=== PATIENT | female | born 1990 | race American Indian/Alaskan Native ===

== ENCOUNTER 2017-03-17 13:38 | Inpatient (IN) | payer MEDICAID ==
[2017-03-17] MEDS ORDERED: TYLENOL PO ONE (14:22)
[2017-03-17 15:11] LABS: Bilirubin,Urine NEG (Negative); Blood,Urine NEG (Negative); Color,Urine Yellow (Yellow); Mucus,Urine FEW /HPF; Nitrite,Urine NEG (Negative); Protein,Urine <15 mg/dL mg/dL (Negative); Urobilinogen,Urine < 2.0 mg/dL (<2.0)
[2017-03-17 17:41] LABS: Hematocrit 33.7 % (30.3-42.9); Hemoglobin 11.1 gm/dl (10.1-14.3); Mean Corpuscular HGB Conc 33 % (30-34); Mean Corpuscular Hemoglobin 28 pg (28-32); Mean Corpuscular Volume 85 fl (79-97); Platelet Count 200 K/mm3 (140-440); Red Blood Count 3.95 M/mm3 (3.65-5.03); Red Cell Distribution Width 13.5 % (13.2-15.2)
[2017-03-17 17:54] LABS: BUN/Creatinine Ratio 10; Blood Urea Nitrogen 4 mg/dL (7-17); Calcium 8.9 mg/dL (8.4-10.2); Hemolysis Index 2
--- NOTE | 2017-03-17 19:45 | Ultrasound Report ---
FINAL REPORT EXAM: US ABDOMEN COMPLETE HISTORY: Lt abdominal/flank/back pain TECHNIQUE: Longitudinal and transverse grayscale sonographic images Comparison: None FINDINGS: Pancreas is grossly unremarkable. The liver has normal echogenicity and echotexture without focal lesion identified. Gallbladder is anechoic. There is no wall thickening or pericholecystic fluid. Common duct measures 3.4 millimeters. Right kidney measures 10.6 centimeters. Left kidney measures 12.9 centimeters. There is an echogenic shadowing focus in the left mid kidney which may represent a small nonobstructive medullary stone. There is no evidence for hydronephrosis, mass lesion. Renal cortical thickness is preserved. Spleen size measures 11.7 centimeters. Aortic caliber is normal in the imaged portions. The distal aorta is not imaged. IMPRESSION: Possible non obstructive left mid renal medullary echogenic shadowing stone measuring approximately 3 millimeters. Otherwise, unremarkable abdominal ultrasound with limited visualization of the aorta. Given the clinical history, recommend CT renal stone protocol.
--- NOTE | 2017-03-17 20:15 | History and Physical Report ---
History of Present Illness Date of examination: 03/17/17 Chief complaint: Left back pains History of present illness: Pt is a 26yo BF EDC 06/25/17; EGA 25 5/7 weeks presents to L&D complaining of severe left back pains. She denies fever or chills or history of kidney stones. She received care at [facility] but records are not available. Past History Past Medical History: no pertinent history Past Surgical History: no surgical history Family/Genetic History: none Social history: no significant social history, single - Obstetrical History Expected Date of Delivery: 06/25/17 Actual Gestation: 25 Week(s) 5 Day(s) : 4 Medications and Allergies Allergies Allergy/AdvReac Type Severity Reaction Status Date / Time No Known Allergies Allergy Verified 03/17/17 14:15 Home Medications Medication Instructions Recorded Confirmed Last Taken Type Vits96/Iron Fum/Folic 1 tab PO DAILY 05/13/13 03/17/17 03/16/17 12:00 History [ Tablet] 1 Acetaminophen [Pain Relief] 325 mg PO PRN PRN 03/17/17 03/17/17 03/16/17 08:00 History 1 Amoxicillin 500 mg PO TID 03/17/17 03/17/17 03/16/17 21:00 History 1 Review of Systems All systems: negative - Vital Signs Vital signs: Vital Signs Pulse BP 86 121/56 03/17/17 14:14 03/17/17 14:14 Temp Pulse Resp BP Pulse Ox 98.2 F 100 H 20 113/57 99 03/17/17 14:34 03/17/17 17:00 03/17/17 14:34 03/17/17 17:00 03/17/17 15:22 - Physical Exam Breasts: Positive: deferred Cardiovascular: Regular rate Lungs: Positive: Clear to auscultation Abdomen: Positive: normal appearance, tenderness (LUQ) Genitourinary (Female): Positive: normal external genitalia Uterus: Positive: enlarged Extremities: Positive: normal - Obstetrical FHR: category 1 Uterine Contraction Monitor Mode: External Uterine Contraction Pattern: Absent Results Result Diagrams: 03/17/17 16:01 03/17/17 16:01 Abnormal lab results 03/17/17 Range/Units 16:01 Carbon Dioxide 20 L (22-30) mmol/L BUN 4 L (7-17) mg/dL Creatinine 0.4 L (0.7-1.2) mg/dL All other labs normal. Ultrasound: report reviewed (Left kidney showed an echogenic shadow (stone?)) Assessment and Plan - Patient Problems (1) 25 weeks gestation of Onset Date: 03/17/17 Current Visit: Yes Status: Acute Plan to address problem: A: IUP @ 25 5/7 weeks Possible left kidney stone P: Admit to L&D for IV hydration, pain medication and antibiotics Obtain a Urology consultation ( Sunday03/20/17 will be the earliest). (2) Kidney calculus Onset Date: 03/17/17 Current Visit: Yes Status: Acute
[2017-03-17] MEDS ORDERED: TYLENOL PO PRN (20:19)
[2017-03-17] MEDS ORDERED: ALUM-MAG HYDROX-SIMETH 200-200-20MG/5ML PO PRN (20:19)
[2017-03-17] MEDS ORDERED: COLACE PO PRN (20:19)
[2017-03-17] MEDS ORDERED: ceFAZolin 2 GM in NACL 0.9% 100 ML IV ONE (20:19)
[2017-03-17] MEDS ORDERED: BENADRYL PO PRN (20:19)
[2017-03-17] MEDS ORDERED: ZOFRAN IV PRN (20:19)
[2017-03-17] MEDS ORDERED: ANCEF/STERILE WATER 2 GM/20 ML 2 GM/20 ML SYRINGE IV ONE (20:30)
[2017-03-17] MEDS: LACTATED RINGERS 1,000 ML IV SCH (21:11)
[2017-03-17] MEDS ORDERED: STADOL IV PRN (22:30)
[2017-03-17] MEDS: PERCOCET 5/325 PO PRN (22:53)
[2017-03-18] MEDS: LACTATED RINGERS 1,000 ML IV SCH ×5 (01:38→23:49)
[2017-03-18] MEDS ORDERED: ANCEF/NS 1 GM/50 ML 1 GM/50 ML BAG IV SCH (04:21)
[2017-03-18] MEDS: ceFAZolin 1 GM in NACL 0.9% 20 ML IV SCH ×3 (04:43→21:12)
[2017-03-18] MEDS: PERCOCET 5/325 PO PRN ×4 (08:07→23:40)
[2017-03-18] MEDS: SUDAFED PO PRN (08:07)
[2017-03-18] MEDS: PRENATAL VITAMIN PO SCH (09:49)
--- NOTE | 2017-03-18 11:35 | Progress Note ---
Assessment and Plan - Patient Problems (1) 25 weeks gestation of Onset Date: 03/17/17 Current Visit: Yes Status: Acute Plan to address problem: A: IUP @ 25 6/7 weeks Possible left kidney stone P: Continue with IV hydration, pain medication and antibiotics Obtain a Urology consultation ( Sunday03/20/17 will be the earliest). (2) Kidney calculus Onset Date: 03/17/17 Current Visit: Yes Status: Acute Subjective - Subjective Date of service: 03/18/17 Principal diagnosis: IUP @ 25 6/7 weeks; Suspected kidney stone Interval history: Pt is a 26yo BF EDC 06/25/17; EGA 25 6/7 weeks still complaining of left back pains, improved with pain meds. She denies fever or chills or history of kidney stones. Today she has a cough which has exacerbated her back pain. Patient reports: new complaints (cough), movement normal, no loss of fluid , no vaginal bleeding, no contractions Objective - Vital Signs Vital Signs: Vital Signs - 12hr 03/17/17 03/17/17 03/17/17 23:53 23:54 23:55 Temperature Pulse Rate 92 H 89 95 H Respiratory Rate Blood Pressure 87/50 91/44 93/45 Blood Pressure [Right] O2 Sat by Pulse Oximetry 03/17/17 03/18/17 03/18/17 23:56 00:00 04:25 Temperature 98.5 F 97.4 F L Pulse Rate 95 H 95 H 95 H Respiratory 18 18 Rate Blood Pressure 96/44 Blood Pressure 96/44 109/59 [Right] O2 Sat by Pulse Oximetry 03/18/17 03/18/17 03/18/17 04:29 07:42 07:45 Temperature 98.6 F Pulse Rate 95 H 91 H 91 H Respiratory 18 Rate Blood Pressure 109/59 90/55 Blood Pressure 90/55 [Right] O2 Sat by Pulse 99 93 Oximetry 03/18/17 08:07 Temperature Pulse Rate Respiratory 18 Rate Blood Pressure Blood Pressure [Right] O2 Sat by Pulse Oximetry - Exam Cardiovascular: Regular rate Lungs: Clear to auscultation Abdomen: Present: normal appearance, tenderness (LUQ) Uterus: Present: normal FHR: category 1 Uterine Contraction Monitor Mode: External - Labs Labs: Abnormal Labs 03/17/17 16:01 Carbon Dioxide 20 L BUN 4 L Creatinine 0.4 L Laboratory Results - last 24 hr 03/17/17 03/17/17 03/17/17 14:30 16:01 16:01 WBC 10.8 RBC 3.95 Hgb 11.1 Hct 33.7 MCV 85 MCH 28 MCHC 33 RDW 13.5 Plt Count 200 Sodium 138 Potassium 3.8 Chloride 103.0 Carbon Dioxide 20 L Anion Gap 19 BUN 4 L Creatinine 0.4 L Estimated GFR > 60 BUN/Creatinine Ratio 10 Glucose 80 Calcium 8.9 Urine Color Yellow Urine Turbidity Clear Urine pH 6.0 Ur Specific [place] 1.015 Urine Protein <15 mg/dl Urine Glucose (UA) Neg Urine Ketones 20 Urine Blood Neg Urine Nitrite Neg Urine Bilirubin Neg Urine Urobilinogen < 2.0 Ur Leukocyte Esterase Neg Urine WBC (Auto) 1.0 Urine RBC (Auto) 1.0 U Epithel Cells (Auto) < 1.0 Urine Mucus Few
[2017-03-18] MEDS: ROBITUSSIN PO PRN (16:38)
[2017-03-19] MEDS: ceFAZolin 1 GM in NACL 0.9% 20 ML IV SCH ×3 (05:45→20:26)
[2017-03-19] MEDS: PERCOCET 5/325 PO PRN ×3 (05:48→22:22)
[2017-03-19] MEDS: LACTATED RINGERS 1,000 ML IV SCH ×4 (05:49→22:19)
[2017-03-19] MEDS: SUDAFED PO PRN ×2 (08:13→16:09)
[2017-03-19] MEDS: ROBITUSSIN PO PRN ×3 (08:13→17:09)
[2017-03-19] MEDS ORDERED: VASELINE TP PRN (08:27)
[2017-03-19] MEDS: PRENATAL VITAMIN PO SCH (09:43)
--- NOTE | 2017-03-19 11:07 | Progress Note ---
Assessment and Plan - Patient Problems (1) 25 weeks gestation of Onset Date: 03/17/17 Current Visit: Yes Status: Acute Plan to address problem: A: IUP @ 26 0/7 weeks Possible left kidney stone P: Continue IV hydration, pain medication and antibiotics Obtain a Urology consultation tomorrow (2) Kidney calculus Onset Date: 03/17/17 Current Visit: Yes Status: Acute Subjective - Subjective Date of service: 03/19/17 Principal diagnosis: IUP @ 26 0/7 weeks; Suspected kidney stone Interval history: Pt is a 26yo BF EDC 06/25/17; EGA 26 0/7 weeks presented to L&D complaining of severe left back pains. She denies fever or chills or history of kidney stones. Today she is feeling better and her cough has improved. Patient reports: new complaints (cough), movement normal, no loss of fluid , no vaginal bleeding, no contractions Objective - Vital Signs Vital Signs: Vital Signs - 12hr 03/18/17 03/19/17 03/19/17 23:40 01:40 01:42 Temperature 97.8 F Pulse Rate 83 87 Respiratory 18 18 Rate Blood Pressure 107/56 Blood Pressure [Right] O2 Sat by Pulse 93 Oximetry 03/19/17 03/19/17 03/19/17 01:43 05:36 07:37 Temperature 98.2 F 98.0 F Pulse Rate 90 96 H 92 H Respiratory 18 20 Rate Blood Pressure 138/83 Blood Pressure 115/58 [Right] O2 Sat by Pulse 93 96 95 Oximetry 03/19/17 03/19/17 03/19/17 07:40 07:41 07:46 Temperature Pulse Rate 90 87 98 H Respiratory Rate Blood Pressure 115/58 Blood Pressure [Right] O2 Sat by Pulse 95 96 Oximetry 03/19/17 03/19/17 03/19/17 07:49 07:51 07:56 Temperature Pulse Rate 99 H 110 H 85 Respiratory Rate Blood Pressure Blood Pressure [Right] O2 Sat by Pulse 94 96 94 Oximetry - Exam Breasts: deferred Cardiovascular: Regular rate Lungs: Clear to auscultation Abdomen: Present: soft FHR: category 1 - Labs Labs: Abnormal Labs 03/17/17 16:01 Carbon Dioxide 20 L BUN 4 L Creatinine 0.4 L
[2017-03-20] MEDS: LACTATED RINGERS 1,000 ML IV SCH ×2 (02:50→10:17)
[2017-03-20] MEDS: ceFAZolin 1 GM in NACL 0.9% 20 ML IV SCH ×2 (04:37→12:41)
[2017-03-20] MEDS: PRENATAL VITAMIN PO SCH (10:17)
--- NOTE | 2017-03-20 10:59 | Progress Note ---
Assessment and Plan - Patient Problems (1) 25 weeks gestation of Onset Date: 03/17/17 Current Visit: Yes Status: Acute Plan to address problem: A: IUP @ 26 1/7 weeks Possible left kidney stone P: Continue IV hydration, pain medication and antibiotics Obtain a Urology consultation today (2) Kidney calculus Onset Date: 03/17/17 Current Visit: Yes Status: Acute Subjective - Subjective Date of service: 03/20/17 Principal diagnosis: IUP @ 26 1/7 weeks; Suspected kidney stone Interval history: Pt is a 26yo BF EDC 06/25/17; EGA 26 1/7 weeks presented to L&D complaining of severe left back pains. She denies fever or chills or history of kidney stones. Today she is feeling much better and her cough has also improved. Patient reports: new complaints (cough), movement normal, no loss of fluid , no vaginal bleeding, no contractions Objective - Vital Signs Vital Signs: Vital Signs - 12hr 03/19/17 03/20/17 03/20/17 23:22 07:09 07:14 Temperature 97.5 F L Pulse Rate 93 H 93 H Respiratory 18 18 Rate Blood Pressure 109/58 Blood Pressure 109/58 [Right] - Exam Cardiovascular: Regular rate Lungs: Clear to auscultation Abdomen: Present: normal appearance, soft Uterus: Present: normal FHR: category 1 Uterine Contraction Monitor Mode: External Uterine Contraction Pattern: Absent - Labs Labs: Abnormal Labs 03/17/17 16:01 Carbon Dioxide 20 L BUN 4 L Creatinine 0.4 L
--- NOTE | 2017-03-20 12:28 | Progress Note ---
Assessment and Plan no hydro rec conservative tx recheck shana today if no hydro no stent non obst stone dictated Subjective Date of service: 03/20/17 Principal diagnosis: IUP @ 26 1/ weeks; Suspected kidney stone Objective - Constitutional Vitals: Vital Signs - 12hr 03/20/17 03/20/17 07:09 07:14 Temperature 97.5 F L Pulse Rate 93 H 93 H Respiratory 18 Rate Blood Pressure 109/58 Blood Pressure 109/58 [Right] General appearance: Present: mild distress - Neck Neck: supple Extremities: no ischemia - Gastrointestinal General gastrointestinal: Present: non-distended - Labs CBC & Chem 7: 03/17/17 16:01 03/17/17 16:01
[2017-03-20] MEDS: PERCOCET 5/325 PO PRN (13:11)
[2017-03-20] MEDS: ROBITUSSIN PO PRN (17:33)
--- NOTE | 2017-03-20 18:13 | Discharge Summary ---
Providers - Providers Date of Admission: 03/17/17 20:32 Date of discharge: 03/20/17 Attending physician: BRIDGETTE SANTA MD 03/20/17 10:55 Consult to Physician [CONS] Urgent Consulting Provider: RUBI PIERCE Reason For Exam: IUP @ 26 weeks; Suspected kidney stone Place consult to:: Office Notified:: Office Phone number called:: [phone] Was contact made?: Yes If yes, spoke with:: Alba Time called:: 10:57 Primary care physician: BRIDGETTE SANTA MD Hospitalization Reason for admission: IUP - , other (left flank pain) Other procedures: none complications: none Pertinent studies: Renal ultrasound Hospital course: Pt is a 26yo BF EDC 06/25/17; EGA 26 04/01 weeks who presented to L&D complaining of severe left back pains. She denied fever or chills or history of kidney stones, however renal u/s showe a left kidney stone. Pt was treated with IV hydration and pain meds, and her symptoms improved. Consultation with Dr Pierce (Urologist) stated to repeat Renal u/s and no hydronephrosis, then she can go home on pain meds. Repeat renal u/s showed No hydronephrosis, so pt will be discharged to home today. Condition at discharge: Good Disposition: DC-01 TO HOME OR SELFCARE - Discharge Diagnoses (1) 25 weeks gestation of Status: Chronic (2) Kidney calculus Status: Chronic Plan - Discharge Medications Prescriptions: Docusate Sodium [Colace CAP] 100 mg PO Q12H PRN #60 capsule PRN Reason: Constipation oxyCODONE /ACETAMINOPHEN [Percocet 5/325 mg] 1 tab PO Q6HR PRN #30 tablet PRN Reason: Pain, Moderate (4-6) - Provider Discharge Summary Activity: routine, no sex for 6 weeks, no heavy lifting 4 weeks, no strenuous exercise Diet: routine Instructions: routine Additional instructions: [] Smoking cessation referral if applicable(refer to patient education folder for contact #) [] Refer to [facility]'s [facility] Booklet Call your doctor immediately for: * Fever > 100.5 * Heavy vaginal bleeding ( >1 pad per hour) * Severe persistent headache * Shortness of breath * Reddened, hot, painful area to leg or breast * Drainage or odor from incision. * Keep incision clean and dry at all times and follow doctor's instructions regarding bathing/showering - Follow up plan Follow up: BRIDGETTE SANTA MD [Primary Care Provider] - 3 Days
--- NOTE | 2017-03-20 18:22 | Ultrasound Report ---
FINAL REPORT EXAM: US RENAL BILAT HISTORY: L abdominal / flank / back pain TECHNIQUE: Longitudinal and transverse grayscale and color sonographic images Comparison: Abdominal ultrasound 03/17 reporting possible left lower pole nonobstructive medullary stone measuring 3 millimeters FINDINGS: The right kidney measures 12 centimeters with a 1.3 centimeter cortical thickness. Normal cortical echogenicity. Right kidney measures 12 centimeters with 1.2 centimeter cortical thickness. No hydronephrosis. There are multiple medullary echogenic foci. Urinary bladder is collapsed. head is seen in the lower uterus. As seen on the previous exam, there are multiple echogenic renal medullary foci without obstruction identified which may represent calcifications. The largest discretely identified measures 3 millimeters and is in the midpole and has a somewhat linear appearance on the current exam. IMPRESSION: Normal sonographic appearance of the renal size and cortical thickness. Echogenic renal medullary foci may represent nonobstructive stones. The largest discretely measures 3 millimeters left midpole. Collapsed urinary bladder. Patient is twenty-six weeks 1 day .
[2017-03-20 18:45] VITALS: BP 123/58
--- NOTE | 2017-03-21 00:06 | Consultation ---
HISTORY OF PRESENT ILLNESS: The patient is a 26-year-old woman who is having her fourth . She has significant left flank pain. She has a nonobstructing stone with no hydronephrosis. She has no hematuria. No previous history of stones or manipulation. PAST MEDICAL HISTORY: As mentioned above. PAST SURGICAL HISTORY: As mentioned, just previous deliveries. MEDICATIONS: None regularly. ALLERGIES: Negative. REVIEW OF SYSTEMS: Left flank pain, some nausea. PHYSICAL EXAMINATION: GENERAL: She is awake. She is clearly 26 weeks or more. She is in mild discomfort. BACK: She has left CVA tenderness. IMPRESSION: No acute problem at this point, with no hydronephrosis, I would not recommend a stent or any type of manipulation and try to monitor this conservatively. She has a nonobstructing stone. We will recheck the ultrasound to be sure that there is no hydronephrosis and she can be discharged on some pain medication as needed. JOB# [id number] GABRIELLE/VERONICA
== END 2017-03-20 18:45 | disposition home or self-care (01) | DRG 781 ==
LOC: TRG 13:38 → OBSVTOIN 20:32 → LD 20:32
PROVIDERS: ADMIT Obstetrics & Gynecology; ATTEND Obstetrics & Gynecology
DX: O26.92 Pregnancy related conditions, unspecified, second trimester (principal); N20.0 Calculus of kidney; O26.892 Other specified pregnancy related conditions, second trimester; Z3A.25 25 weeks gestation of pregnancy
CPT/HCPCS: 36415; 59025; 76700; 76770; 80048; 81001; 85027; 96361; 96374; 96376; A6250; G0378; J0690; J7120